=== PATIENT | male | born 1995 | race Caucasian/White ===

== ENCOUNTER 2019-10-11 14:49 | Emergency (ER) | payer MEDICAID, SELFPAY ==
[2019-10-11 14:50] VITALS: BP 112/74; PULSE 73; RESP 18; TEMP 36.4; O2SAT 98; BMI 29.0
--- NOTE | 2019-10-11 15:58 | ED.DCSUM_ITS ---
History of Present Illness Chief Complaint: Head Injury Informant: Patient Onset: Today Mechanism/Context: Fall Narrative: Patient is a 24-year-old male with no significant past medical history presenting for headache after a fall. Patient slipped again on the shower and hit his head on the counter. He denies loss of consciousness. After that he had an episode of vomiting lasting for about 20 minutes. He has associated headache in the front of his head. He states his symptoms have now started to subside and he is feeling better. He actually wants to leave to go to work. Patient denies any other complaints at this time. He denies associated numbness, weakness or vision changes. He denies any speech changes. He denies any history of any bleeding issues or prior head injuries. Past Medical History - Allergies and Home Meds Allergies/Adverse Reactions: Allergies No Known Allergies Allergy (Verified 10/11/19 14:52) Primary Care Physician: Care Physician,No Primary [Primary Care Provider] - Past Medical History: None Surgical History: no surgical history Lives: With Family Smoking Status: Current every day smoker Review of Systems General: Denies: Chills, Fever, Sweats Eyes: Denies: Visual changes - bilaterally, Diplopia ENT: Denies: Rhinorrhea, Sore throat Cardiovascular: Denies: Chest pain, Palpitations Respiratory: Denies: Dyspnea, Cough, Dyspnea on exertion Gastrointestinal: Reports: Nausea, Vomiting. Denies: Abdominal pain, Diarrhea, Melena, Hematochezia Genitourinary: Denies: Dysuria, Hematuria, Frequency Musculoskeletal: Denies: Back pain, Extremity Pain Skin: Denies: Rash, Wounds Neurological: Reports: Headache. Denies: Weakness, Numbness Physical Exam Vital Signs/Narrative: Vital Signs Temp Pulse Resp BP Pulse Ox 10/11/19 14:50 97.6 F L 73 18 112/74 98 Inital Vital Signs reviewed: Yes General: Well nourished, Well developed Head: Normocephalic, Atraumatic Eyes: Perrl, EOMI ENT: TM's clear, No hemotympanum or drainage, No trauma Neck: Nontender, Full ROM Cardiovascular: Regular rate, Regular rhythm, No murmurs Respiratory: No distress, CTA bilaterally, Chest nontender Abdomen: Soft, Nontender, Nondistended, Normal bowel sounds Back: Nontender Skin: Normal color, No rash, - - Facial abrasion over the right lateral forehead Neurological: Alert, Oriented x3, Cranial nerves II-XII grossly intact, Normal Strength, Normal Sensation, - - Normal coordination. Negative for: Left side facial droop, Right side facial droop Psychological: Normal affect - Glascow Coma Scale Eye Opening: Spontaneous Motor: Obeys Commands Verbal: Oriented Coma Scale Total: 15 Diagnostic/Tx/Re-eval - Medical Decision Making She is evaluated after mechanical fall resulting in a closed head injury. He appears nontoxic in no acute distress. He is not having any nausea or vomiting while in the emergency room. He is a normal neurologic exam. His symptoms are consistent with a concussion. Do not think imaging is indicated at this time however patient is counseled on signs and symptoms require return the emergency room and should he have progression of his symptoms he needs to return for a head CT at that time. He is not have any associated neck tenderness or any other signs of injury. He is given concussion information. He will be discharged home with Zofran. He will take Tylenol at home as needed for headache. He is given a dose of Tylenol and Zofran in the emergency room. ED Disposition - Plan for ED Patient: Disposition: Home or Assisted Living Diagnosis: Closed head injury, Nausea & vomiting Instructions: ED Head Injury Adult, ED Concussion Prescriptions: Ondansetron [Zofran Odt] 4 mg PO Q8H PRN PRN #10 tab PRN Reason: Nausea Transmission Status: Pending to [id number] Referrals: Eli Terry MD [STAFF PHYSICIAN] - Additional Instructions: You have worsening symptoms, please immediately return the emergency room. We will reevaluate you and potentially perform a head CT at that time. Tylenol [id number] as needed for headache.
[2019-10-11] MEDS: Acetaminophen 325 MG Tablet 650 MG PO (16:02)
[2019-10-11] MEDS: Ondansetron ODT 4 MG Tablet PO (16:02)
== END 2019-10-11 16:12 | disposition home or self-care (01) ==
LOC: ED 16:09
PROVIDERS: Emergency Provider Emergency Medicine
DX: S00.81XA Abrasion of other part of head, initial encounter (principal); R11.2 Nausea with vomiting, unspecified; R40.2410 Glasgow coma scale score 13-15, unspecified time; W18.2XXA Fall in (into) shower or empty bathtub, initial encounter; Y93.E1 Activity, personal bathing and showering; Y92.9 Unspecified place or not applicable; F17.200 Nicotine dependence, unspecified, uncomplicated
CPT/HCPCS: 99283

== ENCOUNTER 2019-11-03 01:25 | Emergency (ER) | payer MEDICAID, SELFPAY ==
[2019-11-03 01:26] VITALS: BP 128/87; PULSE 93; RESP 20; TEMP 36.5; O2SAT 97; BMI 29.0
--- NOTE | 2019-11-03 01:36 | CT_ITS ---
STUDY: CT BRAIN WITHOUT CONTRAST REASON FOR EXAM: Male, 24 years old. FELL 22 FEET FROM COLLAPSED STAIRWAY, C/O LEFT SIDE CP RADIATION DOSAGE (If Supplied By Facility): CTDIvol = ( 44.99 ) mGy, DLP = ( 829.85 ) mGycm TECHNIQUE: Transaxial CT imaging of the brain was performed without administration of intravenous contrast material. Individualized dose optimization techniques were used for this CT. COMPARISON: No relevant priors. FINDINGS: Normal soft tissue structures. Normal calvarium. Normal size ventricles and extra-axial spaces for the patient''s age. Normal white matter tracts of the cerebral hemispheres. Normal basal ganglia and thalami. Normal brainstem. Normal cerebellum. There is no intracranial hemorrhage. There are no findings of an acute ischemic infarction. Normal visualized paranasal sinuses. CT/Brain/Head without Contrast IMPRESSION: Normal unenhanced CT scan of the brain. Electronically Signed: El Buitrago MD at 2:48 EDT , Service support ,
--- NOTE | 2019-11-03 01:36 | CT_ITS ---
STUDY: CT CERVICAL SPINE WITHOUT CONTRAST REASON FOR EXAM: Male, 24 years old. FELL 22 FEET FROM COLLAPSED STAIRWAY, C/O LEFT SIDE CP RADIATION DOSAGE (If Supplied By Facility): CTDIvol = ( 26.31 ) mGy, DLP = ( 606.10 ) mGycm TECHNIQUE: High resolution transaxial imaging was performed without contrast material. Sagittal and coronal images were reconstructed. Individualized dose optimization techniques were used for this CT. COMPARISON: None FINDINGS: Normal craniovertebral junction. Normal anterior atlantoaxial articulation. Normal odontoid process. Normal cervical lordosis. Normal vertebral bodies and posterior osseous elements. C2-3: Normal endplates. Normal disc height and morphology. Normal central canal and intervertebral neuroforamina. C3-4: Normal endplates. Normal disc height and morphology. Normal central canal and intervertebral neuroforamina. C4-5: Normal endplates. Normal disc height and morphology. Normal central canal and intervertebral neuroforamina. C5-6: Normal endplates. Normal disc height and morphology. Normal central canal and intervertebral neuroforamina. C6-7: Normal endplates. Normal disc height and morphology. Normal central canal and intervertebral neuroforamina. C7-T1: Normal endplates. Normal disc height and morphology. Normal central canal and intervertebral neuroforamina. Normal visualized soft tissue structures. CT/Spine Cervical without Contras IMPRESSION: Normal unenhanced CT examination of the cervical spine. Electronically Signed: El Buitrago MD at 2:49 EDT , Service support ,
--- NOTE | 2019-11-03 01:36 | CT_ITS ---
STUDY: CT CHEST WITH CONTRAST REASON FOR EXAM: Male, 24 years old. FELL 22 FEET FROM COLLAPSED STAIRWAY, C/O LEFT SIDE CP RADIATION DOSAGE (If Supplied By Facility): CTDIvol = ( 18.80 ) mGy, DLP = ( 1785.22 ) mGycm TECHNIQUE: Transaxial imaging was performed following intravenous administration of IV 100mL Isovue-370. Individualized dose optimization techniques were used for this CT. COMPARISON: None. FINDINGS: The lungs are normal. There is no demonstrated pleural abnormality. Normal heart and pericardium. Normal mediastinum. Normal hilar regions. Normal enhanced pulmonary arteries. Normal aorta arch and descending thoracic aorta. Normal osseous structures. There is no demonstrated abnormality of the visualized upper abdomen. CT/Chest WITH Contrast IMPRESSION: Normal enhanced CT Chest examination. Electronically Signed: El Buitrago MD at 2:54 EDT , Service support ,
--- NOTE | 2019-11-03 01:37 | CT_ITS ---
STUDY: CT ABDOMEN AND PELVIS WITH CONTRAST REASON FOR EXAM: Male, 24 years old. FELL 22 FEET FROM COLLAPSED STARIWAY, C/O LEFT SIDE CP RADIATION DOSAGE (If Supplied By Facility): CTDIvol = ( 18.80 ) mGy, DLP = ( 1785.22 ) mGycm TECHNIQUE: Transaxial images were obtained from the dome of the diaphragm to the symphysis pubis without oral contrast. IV 100mL Isovue-370 was administered. Sagittal and coronal images were reconstructed. Individualized dose optimization techniques were used for this CT. COMPARISON: None. FINDINGS: The visualized lung bases are unremarkable. The visualized portions of the heart are within normal limits. Normal liver. Normal gallbladder and extrahepatic biliary system. Normal spleen. Normal pancreas. Normal bilateral adrenal glands. Normal right kidney. Normal left kidney. Normal visualized stomach. Normal small intestine. Normal colon. The appendix is visualized and appears normal. Normal abdominal aorta. Normal inferior vena cava. Normal retroperitoneum. Normal urinary bladder. There is NO hemoperitoneum, ascites, free air, abscess or adenopathy. Normal abdominal wall. Normal osseous structures. CT/Abdomen/Pelvis W IV Cont ONLY IMPRESSION: Normal enhanced CT of the abdomen and pelvis. Electronically Signed: El Buitrago MD at 2:58 EDT , Service support ,
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
[2019-11-03 01:42] VITALS: O2SAT 99
--- NOTE | 2019-11-03 01:45 | RAD_ITS ---
STUDY: X-RAY CHEST REASON FOR EXAM: Male, 24 years old. PATIENT FELL OFF OUTDOOR STAIRWAY ABOUT 22 FEET. STAIRWAY COLLAPSED. PATIENT COMPLAINING OF CHEST PAIN TECHNIQUE: Frontal view COMPARISON: None. FINDINGS: The lungs are clear and expanded. There is no demonstrated pleural abnormality. Normal size heart. Normal mediastinum and hetal. Normal visualized pulmonary arteries. Normal visualized aortic arch and descending thoracic aorta. Normal visualized thoracic spine. Normal visualized ribs, clavicles, and shoulders. There is no demonstrated abnormality of the visualized soft tissue structures of the upper abdomen. RAD/Chest 1 View (Portable) IMPRESSION: Normal x-ray examination of the chest. Electronically Signed: El Buitrago MD at 2:08 EDT , Service support ,
[2019-11-03] MEDS: Ketorolac 30 MG/ML Syringe IV (01:53)
[2019-11-03] MEDS: 0.9% Normal Saline 1,000 ML 999 ML IV (01:55)
[2019-11-03 02:01] VITALS: BP 126/77; PULSE 79; RESP 20; O2SAT 99
[2019-11-03 02:05] LABS: Basophil# 0.03 X10^3/uL; Basophil% 0.4 % (0-1); Eosinophil# 0.09 X10^3/uL; Eosinophils% 1.2 % (0-5); Hematocrit 41.7 % (40-54); Hemoglobin 14.7 g/dL (13.0-16.5); Lymphocyte % 38.6 % (19-41); Mean Corp Hgb Conc 35.3 g/dL (32-36); Mean Corpuscular Hgb 29.9 pg (27.0-32.0); Mean Corpuscular Volume 84.9 fL (80-94); Mean Platelet Vol. 10.2 fl (6.2-12.0); Monocyte# 0.48 X10^3/uL; Monocyte% 6.4 % (0-10); NRBC Flagged by Analyzer 0 % (0-5); Neutrophil % 53.1 % (47-70); Platelet Count 195 K/mm3 (150-450); RBC Distribution Width CV 12.2 % (11.6-14.6); RBC Distribution Width SD 37.2 fl (35.1-43.9); Red Blood Count 4.91 M/mm3 (4.6-6.2); White Blood Count 7.5 K/mm3 (4.4-11.0)
[2019-11-03 02:06] LABS: Bacteria 0 SEEN /hpf (None Seen); Mucous, Urine 0 SEEN /hpf (<or=2+); Red Blood Cells-Urine 0 SEEN /hpf (0-5); Squamous Epithelial Cells - UA 0 SEEN /hpf (0-5); White Blood Cells 0 SEEN /hpf (0-5)
[2019-11-03 02:07] LABS: Color, Urine Yellow (Yellow); Glucose, Dipstick Normal (Normal); Ketone-Dipstick Negative (Negative); Leukocyte Esterase-Dipstick Negative /ul (Negative); Nitrite-Dipstick Negative (Negative); Occult Blood-Urine Negative /ul (Negative); Protein-Dipstick Negative (Negative); Specific Gravity, Urine 1.005 (1.002-1.030); Urine Bilirubin Dipstick Negative (Negative); Urine Clarity Clear (Clear); Urine Urobilinogen Normal (Normal)
[2019-11-03 02:34] LABS: ALB/GLOB Ratio 1.4 RATIO (0.9-2.4); AST(SGOT) 15 U/L (15-37); Alanine Aminotransfer ALT/SGPT 14 U/L (16-61); Albumin, Serum 4.3 g/dL (3.2-5.0); Alkaline Phosphatase 82 U/L (45-117); Anion Gap 9 (5-15); BUN 8 mg/dL (7-18); BUN/Creat Ratio 8.3 RATIO (10-20); Calcium,Total 8.9 mg/dL (8.5-10.1); Chloride 110 mmol/L (98-107); Creatinine, Serum 0.96 mg/dL (0.70-1.30); EST Glomerular Filtration Rate 101 mL/min (>60); Est Glom Filt Rate - Afr Amer 123 mL/min (>60); Estimated Creatinine Clearance 134.09 ml/min; Globulin 3.1 g/dL (2.2-4.2); Glucose 99 mg/dL (74-106); Potassium 3.7 mmol/L (3.5-5.1); Protein, Total 7.4 g/dL (6.4-8.2); Sodium Level 141 mmol/L (136-145)
[2019-11-03 03:00] VITALS: BP 113/63; PULSE 81; RESP 27; O2SAT 98
[2019-11-03 03:45] VITALS: BP 110/69; PULSE 77; RESP 18; O2SAT 98
== END 2019-11-03 03:45 | disposition home or self-care (01) ==
PROVIDERS: Emergency Provider Emergency Medicine
DX: S20.212A Contusion of left front wall of thorax, initial encounter (principal); S39.91XA Unspecified injury of abdomen, initial encounter; S80.812A Abrasion, left lower leg, initial encounter; S80.811A Abrasion, right lower leg, initial encounter; F10.129 Alcohol abuse with intoxication, unspecified; F17.200 Nicotine dependence, unspecified, uncomplicated; W20.1XXA Struck by object due to collapse of building, initial encounter; Y93.01 Activity, walking, marching and hiking; Y92.89 Other specified places as the place of occurrence of the external cause; Y99.8 Other external cause status
CPT/HCPCS: 70450; 71045; 71260; 72125; 74177; 80053; 80320; 81001; 85025; 86850; 86900; 86901; 96361; 96374; 99285; J7030; Q9967; G0480

== ENCOUNTER 2020-02-15 21:10 | Emergency (ER) | payer MEDICAID, SELFPAY ==
[2020-02-15 21:11] VITALS: BP 138/97; PULSE 89; PULSE 92; RESP 16; TEMP 36.3; O2SAT 98; BMI 24.7
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
--- NOTE | 2020-04-04 21:37 | ED.RN ---
patient called in asking what type of blood he was, results given
== END 2020-02-15 22:51 | disposition home or self-care (01) ==
LOC: ED 22:09
PROVIDERS: Emergency Provider Emergency Medicine
DX: S51.812A Laceration without foreign body of left forearm, initial encounter (principal); W25.XXXA Contact with sharp glass, initial encounter; Y93.9 Activity, unspecified; Y92.9 Unspecified place or not applicable; F17.200 Nicotine dependence, unspecified, uncomplicated
CPT/HCPCS: 12001; 99282

== ENCOUNTER 2020-04-09 17:12 | Emergency (ER) | payer MEDICAID, SELFPAY ==
[2020-04-09 17:13] VITALS: BP 122/92; PULSE 88; RESP 16; TEMP 36.5; O2SAT 98; BMI 23.7
--- NOTE | 2020-04-09 17:25 | RAD_ITS ---
STUDY: X-RAY CHEST REASON FOR EXAM: Male, 24 years old. COUGH, MUSCLE ACHES, CHILLS THAT STARTED THIS AM. RECENT EXPOSURE TO KNOWN COVID. TECHNIQUE: 1 view COMPARISON: None. FINDINGS: The lungs are clear and expanded. There is no demonstrated pleural abnormality. Normal size heart. Normal mediastinum and hetal. Normal visualized pulmonary arteries. Normal visualized aortic arch and descending thoracic aorta. Normal visualized thoracic spine. Normal visualized ribs, clavicles, and shoulders. There is no demonstrated abnormality of the visualized soft tissue structures of the upper abdomen. RAD/Chest 1 View (Portable) IMPRESSION: Normal x-ray examination of the chest. Electronically Signed: Reyna Rivera MD at 18:22 EST , Service support ,
--- NOTE | 2020-04-09 17:27 | ED.VISSUMM ---
- ER Visit Summary Date of Service: 04/09/20 Chief Complaint: Sore throat and cough History of Present Illness: The patient is a [address] Melchor. He reports that he was with his mother 3 to 4 days ago for the holidays. He got a note today that she tested positive for Covid. States that this morning he woke with chills, sore throat for a 10 severity, and a cough productive white sputum without blood. He reports that he has moderate shortness of breath that is worsened with exertion. He has been wheezing. He smokes 1/2 pack/day. Physical Examination: Vitals: Stable. Afebrile. General: Well-nourished and well-developed. Head: Normocephalic atraumatic. Neck: Supple, no lymphadenopathy. No JVD. Nontender. Cardiovascular: Regular rate and rhythm. No murmurs. Respiratory: No respiratory distress. Clear to auscultation bilaterally. Abdominal: Soft, nontender, nondistended, normal bowel sounds. No guarding, rebound, or peritoneal signs. Back: Nontender. Extremities: Nontender, no edema. Skin: Minimal erythema to a tattoo just below his right eye. There is no induration or fluctuance. Neurologic: Alert and oriented ?3. Cranial nerves II through XII are intact. Normal strength and sensation. Psych: Normal affect. Test Results: COVID-19 rapid antigen is negative. Clinical Impression(s) from Imaging Studies Chest X-Ray 04/09/20 17:25 IMPRESSION: Normal x-ray examination of the chest. Electronically Signed: Reyna Rivera MD at 18:22 EST , Service support , Emergency Department Course and Treatment: Patient is resting comfortably without complaint. Treatment Plan: Given the patient's recent exposure to Covid and his symptoms I suspect that his test is a false negative. He will be treated as though he has Covid and instructed to quarantine. He will be given a prescription for an albuterol MDI for his wheezing. He is not wheezing at this time. He also be given a prescription for Bactroban for the infected tattoo to his face. Follow-up with his primary care physician in 10 to 14 days if not improving. Return to the emergency department for any worsening symptoms. Disposition: To home in improved and stable condition. Impression: 1. URI, suspected COVID-19 infection. This note was generated with [employer] dictation software. It may contain incorrect words, spelling, and punctuation that were not noted in review of the chart prior to signing ED Disposition - Plan for ED Patient: Instructions: Coronavirus Disease 2019 (COVID-19): Overview, Preventing the Spread of Infection Understanding Isolation Procedures Prescriptions: Mupirocin [Bactroban] 1 applic TOPICAL TID #1 tube Albuterol Inhaler [Ventolin Hfa] 2 puff INHALATION Q4H PRN PRN #1 inhaler PRN Reason: Wheezing Referrals: Dev Mendoza MD [Primary Care Provider] - 10-14 Days if not better
== END 2020-04-09 18:43 | disposition home or self-care (01) ==
LOC: ED 17:52
PROVIDERS: Emergency Provider Emergency Medicine; PCP Family Medicine
DX: J06.9 Acute upper respiratory infection, unspecified (principal); Z20.828 Contact with and (suspected) exposure to other viral communicable diseases; F17.200 Nicotine dependence, unspecified, uncomplicated
CPT/HCPCS: 71045; 87426; 99282